=== PATIENT | male | born 1975 | race Caucasian/White ===

== ENCOUNTER → 2020-06-05 12:09 | Outpatient (CLI) | payer OTHER, SELFPAY ==
[2020-06-05 13:22] LABS: Basophils % 0.5 % (0.1-2.0); Eosinophils # 0.2 K/mm3 (0.0-0.4); Hematocrit 44.5 % (42.0-52.0); Hemoglobin 14.1 g/dL (14.1-18.0); Lymphocytes # 2.2 K/mm3 (0.7-4.5); Lymphocytes % 25.6 % (10-50); Mean Corpuscular HGB Conc 31.6 g/dL (31.8-35.4); Mean Corpuscular Hemoglobin 28.4 pg (27.0-31.2); Mean Corpuscular Volume 89.8 fl (80-94); Monocytes # 0.6 K/mm3 (0.1-1.0); Monocytes % 7.1 % (1.7-9.3); Neutrophils # 5.6 K/mm3 (1.8-7.8); Neutrophils % 64.9 % (37.0-80.0); Platelet Count 339 K/mm3 (142-424); Red Blood Count 4.96 M/mm3 (4.60-6.20); Red Cell Distribution Width 12.8 % (11.5-17.5); White Blood Count 8.7 K/mm3 (4.8-10.8)
== END ==
PROVIDERS: PCP Nurse Practitioner; Visit Provider Nurse Practitioner
DX: Z03.818 Encounter for observation for suspected exposure to other biological agents ruled out (principal)
CPT/HCPCS: 36415; 85025; U0003

== ENCOUNTER 2020-07-28 19:22 | Emergency (ER) | payer OTHER, SELFPAY ==
[2020-07-28 20:21] VITALS: BP 139/85; PULSE 78; RESP 19; TEMP 36.7; O2SAT 100; BMI 34.2
--- NOTE | 2020-07-28 20:24 | HMH.EDUTC ---
[facility] [place]ression: Exposure to COVID-19 virus Disposition: Home, Self-Care Condition on Discharge: Good Instructions: Preventing the Spread of Coronavirus Discharge Instructions Additional Instructions: *Monitor Temp, Over the counter Motrin or Tylenol as directed/as needed Tylenol every 4 hours and Motrin every 6 hours (as long as your family doctor has told you that you can take it) for fever or pain. and straight to ER if unable to lower temp less than 101.0 after medication given *Warm salt water gargles may help to soothe the throat *Throat Lozenges *Warm fluids like tea with honey may help to soothe the throat *Sleep elevated *Humidifier/Vaporizer Follow up IMMEDIATELY for new or worsening symptoms or no Noticeable improvement over the next 48-72 hours. 911 for difficulty breathing or swallowing You was tested for today for COVID19 your test result should be back in the next 24-48 hours, you may call to the [facility] later today or tomorrow to see if your test results are back and the result [phone] [facility] hours are 9am-9pm You was given a handout with instructions for Self Quarantine and Self isolation for while you wait on test results and what to do if they are positive If you are positive the Health Dept will be contacting you also Referrals: Phylicia De La Vega MD [Primary Care Provider] - Forms: Work/School Release Time of Disposition: 20:27 Medical Decision Making - Alexander Inquiry Pt receiving controlled substance: No Alexander was queried for this patient: No Vital Signs: 07/28/20 20:21 Temperature 98.0 F Temperature Source Oral Pulse Rate [Radial] 78 Respiratory Rate 19 Blood Pressure [Right Arm] 139/85 Blood Pressure Mean [Right Arm] 103 Blood Pressure Source [Right Arm] Automatic Cuff Blood Pressure Position [Right Arm] Sitting 02 Sat by Pulse Oximetry 100 Oxygen Delivery Method Room Air Orders (Tests/Meds): ORDERS Category Date Time Status Covid-19 Nasal PCR ([facility] [place]) Routine Lab 07/28/20 19:[address] [facility] [place] - General Stated complaint: Covid 19 Test Time Seen by Provider: 07/28/20 20:24 Mode of Arrival: Ambulatory Source of Information: Patient Limitations: No Limitations Description of Symptoms (Recalled from Triage Doc. by RN): COVID EXPOSURE HEENT Symptoms (Recalled from RN notes): No Resp Symptoms (Recalled from RN notes): No Skin Symptoms (Recalled from RN notes): No MS Symptoms (Recalled from RN notes): No Functional Status (Recalled from RN notes): WNL - History of Present Illness Provider Complaint: Patient state that he wants to get tested for COVID State that his daughter tested positive earlier today States that he has been having some nasal congestion and drainage and feeling achy but denies SOA State that he thought it was allergies until she tested positive - Related Data Previous Rx's Medication Instructions Recorded Hydrocod/Acet 5/325 mg [[place] 1 tab PO Q6HP PRN #10 tab 02/13/18 5/325mg tablet] Allergies Allergy/AdvReac Type Severity Reaction Status Date / Time No Known Allergies Allergy Verified 02/13/18 19:38 - Worker's Comp Is this a Worker's Comp case?: No [facility] [place] History - Hepatitis A Screen Drug use history?: No High risk sexual behaviors?: No History of sexually transmitted infection?: No Currently employed?: No Childcare worker?: No Do you have indoor plumbing?: Yes Do you have electricity?: Yes Attestation statement:: This patient has been screened for Hepatitis A risk factors. I have reviewed the patient's past medical history: Yes Medical History: Denies:: Cancer, Chronic Obstructive Pulmonary Disease (COPD), MRSA Laterality Cases: Bilateral: Tonsillectomy - Social History Tobacco Type: smokeless tobacco Alcohol Intake: never Substance Use Type: denies use Occupational Status: other Housing: other Family Hx:: Non-contributory ROS Obtained: Yes All systems reviewed & no additional c
[2020-07-28 20:44] VITALS: BP 139/85; PULSE 78; RESP 19; TEMP 36.7; O2SAT 100
== END 2020-07-28 20:45 | disposition home or self-care (01) ==
PROVIDERS: Emergency Provider Nurse Practitioner; PCP Family Medicine
DX: Z20.828 Contact with and (suspected) exposure to other viral communicable diseases (principal); F17.290 Nicotine dependence, other tobacco product, uncomplicated
CPT/HCPCS: 99201; U0003

== ENCOUNTER → 2020-09-24 16:15 | Outpatient (CLI) | payer OTHER, SELFPAY ==
--- NOTE | 2020-09-24 | ECG_ITS ---
APPROVED REPORT Exam: Resting ECG HR:84 bpm ECG Measurements Heart Rate 84 AXES HI 158 P 58 QRSd 102 QRS 2 QT 348 T -5 QTc 411 Conclusion Normal sinus rhythm Normal ECG Electronically signed by : Kj Dasilva, 09/25/2020 07:08:07
[2020-09-24 16:28] LABS: MANUAL DIFFERENTIAL MANUAL DIFFERENTIAL (MANUAL DIFF)
--- NOTE | 2020-09-24 16:37 | XR_ITS ---
PROCEDURE: XR CHEST 2V CLINICAL HISTORY: ESSENTIAL HYPERTENSION COMPARISON: CT AGCHEST CT angio chest from 02/13/2018 CR CXR1VP XR chest portable from 02/13/2018 FINDINGS: The cardiomediastinal silhouette and pulmonary vascularity are within normal limits. The lungs are clear without infiltrates, suspicious nodules, or pleural effusions. There is an old healed right clavicular fracture. Old right-sided rib fractures also noted. IMPRESSION: No acute findings. Dictated by: Rj Lovett MD 09/24/2020 17:10 Rj Lovett MD in [place] 09/24/2020 17:10
[2020-09-24 17:36] LABS: Basophils % 0.4 % (0.1-2.0); Eosinophils # 0.2 K/mm3 (0.0-0.4); Eosinophils % 1.8 % (0.1-12.0); Hematocrit 47.4 % (42.0-52.0); Hemoglobin 15.3 g/dL (14.1-18.0); Lymphocytes # 2.9 K/mm3 (0.7-4.5); Lymphocytes % 36.3 % (10-50); Mean Corpuscular HGB Conc 32.3 g/dL (31.8-35.4); Mean Corpuscular Hemoglobin 28.9 pg (27.0-31.2); Mean Corpuscular Volume 89.4 fl (80-94); Mean Platelet Volume 7.5 fl (7.4-10.4); Monocytes # 0.3 K/mm3 (0.1-1.0); Monocytes % 3.8 % (1.7-9.3); Neutrophils # 4.6 K/mm3 (1.8-7.8); Neutrophils % 57.6 % (37.0-80.0); Platelet Count 343 K/mm3 (142-424); Red Cell Distribution Width 13.2 % (11.5-17.5)
[2020-09-24 17:50] LABS: Alanine Aminotransferase 21 U/L (12-78); Albumin Level 4.6 g/dl (3.5-5.0); Albumin/Globulin Ratio 1.3 (1.1-1.8); Alkaline Phosphatase 60 U/L (38-126); Anion Gap 12.9 mEq/L (5-15); Aspartate Amino Transferase 32 U/L (17-59); Bilirubin,Total 0.6 mg/dl (0.2-1.3); Blood Urea Nitrogen 12 mg/dl (9-20); Carbon Dioxide 31 mmol/L (22.0-30.0); Chloride 99 mmol/L (98-107); Chol/HDL Ratio 3.6 (1-3.5); Cholesterol 217 mg/dl (140-200); Estimated Glomerular Filt Rate 92 ml/min (>60); GFR (African American) 111 ML/MIN (>60); Globulin 3.5 g/dL (1.3-3.2); Glucose 139 mg/dl (74-100); HDL Cholesterol 60 mg/dl (40-60); Potassium 4.9 mmoL/L (3.5-5.1); Sodium 138 mmol/L (136-145); Total Protein,Serum 8.1 g/dl (6.3-8.2); Triglycerides 172 mg/dl (30-150); Uric Acid 5.8 mg/dl (3.5-8.5); VLDL Cholesterol 34 mg/dL (0-40)
[2020-09-24 18:01] LABS: Direct LDL Cholesterol 104.72 mg/dL (100-129)
[2020-09-24 18:21] LABS: Eosinophils % 1 % (0-3); Lymphocytes % 48 % (10-50); Monocytes % 3 % (2-9); Neutrophils % 48 % (42-76); Platelet Estimate Normal; Thyroid Stimulating Hormone 2.41 uIU/mL (0.465-4.68); Total Cells Counted 100
[2020-09-24 18:22] LABS: RBC Morphology Normal
[2020-09-24 19:33] LABS: Hemoglobin A1C 5.4 % (4.0-6.0)
== END ==
PROVIDERS: Visit Provider Nurse Practitioner
DX: I10 Essential (primary) hypertension (principal)
CPT/HCPCS: 36415; 71046; 80053; 80061; 83036; 84443; 84550; 85007; 85014; 85018; 85048; 85049; 93005

== ENCOUNTER → 2021-04-10 11:56 | Outpatient (CLI) | payer OTHER, SELFPAY ==
[2021-04-10 13:55] LABS: Basophils % 0.5 % (0.1-2.0); Eosinophils # 0.1 K/mm3 (0.0-0.4); Eosinophils % 0.7 % (0.1-12.0); Hemoglobin 14.3 g/dL (14.1-18.0); Lymphocytes # 2.8 K/mm3 (0.7-4.5); Lymphocytes % 32.9 % (10-50); Mean Corpuscular HGB Conc 32.6 g/dL (31.8-35.4); Mean Corpuscular Volume 85.9 fl (80-94); Mean Platelet Volume 7.6 fl (7.4-10.4); Monocytes # 0.4 K/mm3 (0.1-1.0); Monocytes % 5.3 % (1.7-9.3); Neutrophils # 5.1 K/mm3 (1.8-7.8); Neutrophils % 60.6 % (37.0-80.0); Platelet Count 336 K/mm3 (142-424); Red Blood Count 5.12 M/mm3 (4.60-6.20); Red Cell Distribution Width 13.3 % (11.5-17.5); White Blood Count 8.4 K/mm3 (4.8-10.8)
[2021-04-10 14:02] LABS: Chloride 101 mmol/L (98-107); Potassium 3.7 mmoL/L (3.5-5.1); Sodium 139 mmol/L (136-145)
[2021-04-10 14:05] LABS: Alanine Aminotransferase 31 U/L (12-78); Albumin Level 4.5 g/dl (3.5-5.0); Albumin/Globulin Ratio 1.3 (1.1-1.8); Alkaline Phosphatase 61 U/L (38-126); Anion Gap 13.7 mEq/L (5-15); Aspartate Amino Transferase 34 U/L (17-59); Bilirubin,Total 0.7 mg/dl (0.2-1.3); Blood Urea Nitrogen 12 mg/dl (9-20); Calcium 9.2 mg/dl (8.4-10.2); Carbon Dioxide 28 mmol/L (22.0-30.0); Estimated Glomerular Filt Rate 105 ml/min (>60); GFR (African American) 126 ML/MIN (>60); Globulin 3.6 g/dL (1.3-3.2); Glucose 87 mg/dl (74-100); Total Protein,Serum 8.1 g/dl (6.3-8.2)
== END ==
PROVIDERS: PCP Nurse Practitioner; Visit Provider Nurse Practitioner
DX: Z20.822 Contact with and (suspected) exposure to COVID-19 (principal)
CPT/HCPCS: 36415; 80053; 85025; U0003

== ENCOUNTER 2021-04-11 20:04 | Emergency (ER) | payer OTHER, SELFPAY ==
[2021-04-11 20:06] VITALS: BP 116/83; PULSE 87; RESP 16; TEMP 36.7; O2SAT 98; BMI 33.2
--- NOTE | 2021-04-11 20:19 | XR_ITS ---
PROCEDURE INFORMATION: Exam: XR Chest Exam date and time: 04/11/2021 8:19 PM Age: 46 years old Clinical indication: Cough and shortness of breath; Additional info: Ruq TECHNIQUE: Imaging protocol: XR of the chest. Views: 2 views. COMPARISON: CR XR CHEST 2V 09/24/2020 4:41 PM FINDINGS: Lungs: Unremarkable. No consolidation. Pleural spaces: Unremarkable. No pleural effusion. No pneumothorax. Heart/Mediastinum: Unremarkable. No cardiomegaly. Bones/joints: Unremarkable. IMPRESSION: No acute findings.
--- NOTE | 2021-04-11 20:21 | CT_ITS ---
PROCEDURE INFORMATION: Exam: CT Abdomen And Pelvis With Contrast Exam date and time: 04/11/2021 8:21 PM Age: 46 years old Clinical indication: Abdominal pain; Localized; Right; Patient HX: Ruq pain for a week. TECHNIQUE: Imaging protocol: Computed tomography of the abdomen and pelvis with contrast. Radiation optimization: All CT scans at this facility use at least one of these dose optimization techniques: automated exposure control; mA and/or kV adjustment per patient size (includes targeted exams where dose is matched to clinical indication); or iterative reconstruction. Contrast material: ISOVUE; Contrast volume: 75 ml; Contrast route: IV; COMPARISON: CR PEL1V XR pelvis 1-2V 02/13/2018 7:42 PM FINDINGS: Liver: Normal. No mass. A tiny hypodensities seen in the inferior right lobe on image 49 which could represent a small cyst. Gallbladder and bile ducts: Normal. No calcified stones. No ductal dilation. Pancreas: Normal. No ductal dilation. Spleen: Normal. No splenomegaly. Adrenal glands: Normal. No mass. Kidneys and ureters: Small renal hypodensities are too small to further characterize. Stomach and bowel: Unremarkable. No obstruction. No mucosal thickening. Appendix: Appendix is normal. Intraperitoneal space: Unremarkable. No free air. No significant fluid collection. Vasculature: Unremarkable. No abdominal aortic aneurysm. Lymph nodes: Unremarkable. No enlarged lymph nodes. Urinary bladder: Unremarkable as visualized. Reproductive: Unremarkable as visualized. Bones/joints: Unremarkable. No acute fracture. Soft tissues: Unremarkable. IMPRESSION: No acute intra-abdominal pathology. No findings to explain the patient's symptoms. COMMENTS: Consistent with the [employer]'s Incidental Findings Committee white paper (J Am Campbell Radiol 2018): Any incidental renal lesion less than 1 cm or classified as too small to characterize, or any incidental cystic renal lesion characterized as simple-appearing, is likely benign. No follow-up imaging is recommended for these lesions per consensus recommendations based on imaging criteria.
[2021-04-11 20:32] LABS: Basophils % 0.4 % (0.1-2.0); Eosinophils % 0.2 % (0.1-12.0); Hematocrit 43.8 % (42.0-52.0); Hemoglobin 14.7 g/dL (14.1-18.0); Lymphocytes # 1.2 K/mm3 (0.7-4.5); Lymphocytes % 15.6 % (10-50); Mean Corpuscular HGB Conc 33.6 g/dL (31.8-35.4); Mean Corpuscular Hemoglobin 28.5 pg (27.0-31.2); Mean Corpuscular Volume 84.8 fl (80-94); Mean Platelet Volume 7.8 fl (7.4-10.4); Monocytes # 0.2 K/mm3 (0.1-1.0); Monocytes % 2.3 % (1.7-9.3); Neutrophils # 6.1 K/mm3 (1.8-7.8); Neutrophils % 81.5 % (37.0-80.0); Platelet Count 372 K/mm3 (142-424); Red Blood Count 5.16 M/mm3 (4.60-6.20); Red Cell Distribution Width 13.1 % (11.5-17.5); White Blood Count 7.4 K/mm3 (4.8-10.8)
[2021-04-11 20:36] LABS: Chloride 102 mmol/L (98-107); Potassium 4.3 mmoL/L (3.5-5.1); Sodium 138 mmol/L (136-145)
[2021-04-11 20:38] LABS: Amylase 80 U/L (30-110)
[2021-04-11 20:39] LABS: Alanine Aminotransferase 41 U/L (12-78); Albumin Level 4.9 g/dl (3.5-5.0); Albumin/Globulin Ratio 1.2 (1.1-1.8); Alkaline Phosphatase 51 U/L (38-126); Anion Gap 15.3 mEq/L (5-15); Aspartate Amino Transferase 42 U/L (17-59); Bilirubin,Total 0.7 mg/dl (0.2-1.3); Blood Urea Nitrogen 14 mg/dl (9-20); Calcium 9.4 mg/dl (8.4-10.2); Carbon Dioxide 25 mmol/L (22.0-30.0); Creatinine Clearance Estimated 209 mL/min (50-200); Estimated Glomerular Filt Rate 122 ml/min (>60); GFR (African American) 148 ML/MIN (>60); Glucose 180 mg/dl (74-100); Lipase 105 U/L (23-300); Total Protein,Serum 8.9 g/dl (6.3-8.2)
[2021-04-11 20:45] LABS: C-Reactive Protein 3.3 mg/L (0-4)
[2021-04-11 20:59] LABS: Troponin I < 0.01 ng/ml (0.00-0.034)
--- NOTE | 2021-04-11 21:11 | ECG_ITS ---
APPROVED REPORT Exam: Resting ECG HR:82 bpm ECG Measurements Heart Rate 82 AXES MA 160 P 62 QRSd 100 QRS -57 QT 350 T 37 QTc 408 Conclusion Normal sinus rhythm Left anterior fascicular block Abnormal ECG Electronically signed by : Kj Dasilva MD 04/12/2021 16:54:59
[2021-04-11 21:29] LABS: Erythrocyte Sedimentation Rate 23 mm/hr (0-15)
[2021-04-11 21:33] LABS: Procalcitonin 0.046 ng/mL (0.0-2.0)
[2021-04-11 21:46] LABS: Microscopic, Urine URINE MICROSCOPIC (MICROSCOPIC)
[2021-04-11 21:53] LABS: Appearance,Urine CLEAR (Clear); Bilirubin,Urine Negative (Negative); Blood, Urine Negative (Negative); Color,Urine STRAW (Yellow); Glucose,Urine (UA) Negative (Negative); Ketones,Urine Negative (Negative); Leukocyte Esterase,Urine Negative (Negative); Nitrate,Urine Negative (Negative); Protein,Urine Negative (Negative); Specific Gravity, Urine <= 1.005 (1.005-1.030); Urobilinogen,Urine 0.2 EU/dl (0.2)
--- NOTE | 2021-04-11 22:03 | HMH.EDNVD ---
ED Disposition Clinical Impression: Abdominal pain Qualifiers: Abdominal location: right upper quadrant Qualified Code(s): R10.11 - Right upper quadrant pain Disposition: Home, Self-Care Condition on Discharge: Good Instructions: DI for Acute Abdominal Pain Additional Instructions: see pcp for follow up Referrals: Laverne Ward APRN [Primary Care Provider] - - Critical Care Critical Care Time: No Attestation: On 04/11/21, the high probability of a clinically significant, sudden or life threatening deterioration of the following system(s) required my full and direct attention, intervention and personal management. The time I documented below is in addition to time spent performing reported procedures but includes the following listed in this critical care notation. Medical Decision Making - Medical Records Medical records reviewed: Yes: I reviewed the patient's medical records. - Alexander Inquiry Pt receiving controlled substance: No Vital Signs: 04/11/21 20:06 Temperature 98.1 F Temperature Source Oral Pulse Rate [Right] 87 Respiratory Rate 16 Blood Pressure [Right Arm] 116/83 Blood Pressure Mean [Right Arm] 94 02 Sat by Pulse Oximetry 98 - Lab Data Lab results reviewed: Yes: I reviewed the patient's lab results. Lab Results 04/11/21 20:15: WBC 7.4, RBC 5.16, Hgb 14.7, Hct 43.8, MCV 84.8, MCH 28.5, MCHC 33.6, RDW 13.1, Plt Count 372, MPV 7.8, Neut % (Auto) 81.5 H, Lymph % (Auto) 15.6, [place] % (Auto) 2.3, Eos % (Auto) 0.2, Baso % (Auto) 0.4, Neut # (Auto) 6.1, Lymph # (Auto) 1.2, [place] # (Auto) 0.2, Eos # (Auto) 0.0, Baso # (Auto) 0.0, ESR 23 H 04/11/21 20:15: Sodium 138, Potassium 4.3, Chloride 102, Carbon Dioxide 25, Anion Gap 15.3 H, BUN 14, Creatinine 0.70, Estimated Creat Clear 209, Estimated GFR 122, Est GFR ( Amer) 148, Glucose 180 H, Calcium 9.4, Total Bilirubin 0.7, AST 42, ALT 41 D, Alkaline Phosphatase 51, Troponin I < 0.01, C-Reactive Protein 3.3, Total Protein 8.9 H, Albumin 4.9, Globulin 4.0 H, Albumin/Globulin Ratio 1.2, Amylase 80, Lipase 105, Procalcitonin 0.046 Result diagrams: 04/11/21 20:15 04/11/21 20:15 Orders (Tests/Meds): ED MEDICATIONS Discontinued Medications Generic Name Dose Route Start Last Admin Trade Name Freq PRN Reason Stop Dose Admin Iopamidol 75 ml 04/11/21 20:56 04/11/21 20:57 Iopamidol-370 (76%);100ml Bottle IV 04/11/21 20:57 75 ml ONCE ONE Administration Sodium Chloride 10 ml 04/11/21 20:56 04/11/21 20:57 Sodium Chloride 0.9% 10ml Syr (Rad Only) IV 04/11/21 20:57 10 ml ONCE ONE Administration ORDERS Category Date Time Status Troponin I Q3H Lab 04/11/21 23:30 Ordered Troponin I Q3H Lab 04/12/21 02:30 Ordered UA [Urinalysis and Microscopic] Stat Lab 04/11/21 21:30 Received - Radiology Data #1 Image(s): Chest Image Reviewed: Yes I have reviewed radiologist's interpretation Preliminary Findings: Normal/NAD - CT Data CT Scan: Abdomen, Pelvis Time Received: 22:[address] Reviewed: Yes: I have viewed the radiologist's interpretation Preliminary Findings: Normal/NAD - ECG Data Tracing #1 Normal Sinus Rhythm: Yes Ischemic changes: non-specific ST-T wave changes Medical Decision Narrative: stable exam and xrays and labs Nausea/Vomiting/Diarrhea HPI - General Chief complaint: Abdominal Pain Stated complaint: pain upper R side,around to back Time Seen by Provider: 04/11/21 21:15 Mode of Arrival: Ambulatory Source of Information: Patient, Medical Record Limitations: No Limitations Description of Symptoms (Recalled from ER Triage Doc. by RN): pt c/o RUQ that radiates to back that worses after he eats x week - History of Present Illness HPI Narrative: has 2 issues - rt upper abd pain after meals - also has post lt neck pain and lt shoulder - has neg stress test he reports about 6 months ago -no trauma/fever or rash complaint: abdominal pain Onset (ago): day(s) Associated Abdominal
[2021-04-11 22:07] VITALS: BP 142/70; PULSE 78; RESP 17; TEMP 36.8; O2SAT 98
[2021-04-11 22:14] LABS: Squamous Epithelial Cell,Urine Occasional #/hpf (0-5); WBC,Urine Occasional #/hpf (0-3)
== END 2021-04-11 22:35 | disposition home or self-care (01) ==
PROVIDERS: Emergency Provider Emergency Medicine; PCP Nurse Practitioner
DX: R10.11 Right upper quadrant pain (principal)
CPT/HCPCS: 71046; 74177; 80053; 81001; 82150; 83690; 84145; 84484; 85025; 85651; 86140; 93005; 99283; Q9967

== ENCOUNTER → 2021-04-18 07:44 | Outpatient (CLI) | payer OTHER, SELFPAY ==
--- NOTE | 2021-04-18 07:46 | US_ITS ---
PROCEDURE: US ABDOMEN LIMITED CLINICAL INDICATION: RUQ ABDOMINAL PAIN COMPARISON: No exams were available for comparison FINDINGS: PANCREAS: Unremarkable. No obvious mass or abnormal fluid collection. No ductal dilatation LIVER: No focal liver lesions demonstrated. Homogeneous echogenicity. No intrahepatic biliary ductal dilatation evident. There is appropriate direction of blood flow within a non dilated portal vein RIGHT KIDNEY: Unremarkable. Normal size and echogenicity. No hydronephrosis GALLBLADDER: No gallstones, gallbladder wall thickening, pericholecystic fluid, or biliary dilatation. IMPRESSION: Unremarkable limited abdominal ultrasound as detailed above disc Dictated by: Rj Lovett MD 04/18/2021 11:30 Rj Lovett MD in [place] 04/18/2021 11:30
== END ==
PROVIDERS: PCP Nurse Practitioner; Visit Provider Nurse Practitioner
DX: R10.11 Right upper quadrant pain (principal)
CPT/HCPCS: 76705

== ENCOUNTER 2021-04-23 08:43 | Emergency (ER) | payer OTHER, SELFPAY ==
[2021-04-23 08:43] VITALS: BP 149/89; PULSE 87; RESP 13; TEMP 37.1; O2SAT 99; BMI 32.5
--- NOTE | 2021-04-23 08:50 | HMH.EDGENADL ---
ED Disposition Clinical Impression: Elevated blood pressure reading Disposition: Home, Self-Care Condition on Discharge: Good Instructions: Recommendations to Help Prevent High Blood Pressure, Essential Hypertension Additional Instructions: You have been evaluated for elevated blood pressure reading. There does not appear to be a kidney injury or evidence of endorgan dysfunction. Please continue taking all medications as prescribed. Follow-up with your primary care doctor. Return to the emergency department for any new or worsening symptoms, headache, vision changes, chest pain, other concerns. Referrals: Laverne Ward APRN [Primary Care Provider] - Time of Disposition: 10:27 - Critical Care Critical Care Time: No Attestation: On , the high probability of a clinically significant, sudden or life threatening deterioration of the following system(s) required my full and direct attention, intervention and personal management. The time I documented below is in addition to time spent performing reported procedures but includes the following listed in this critical care notation. Medical Decision Making - Medical Records Medical records reviewed: Yes: I reviewed the patient's medical records. - Alexander Inquiry Pt receiving controlled substance: No Vital Signs: 04/23/21 08:43 04/23/21 10:05 Temperature 98.7 F Temperature Source Oral Pulse Rate 84 Pulse Rate [Right Radial] 87 Respiratory Rate 13 15 Blood Pressure 117/77 Blood Pressure [Right Arm] 149/89 H Blood Pressure Mean [Right Arm] 109 Blood Pressure Source [Right Arm] Automatic Cuff Blood Pressure Position [Right Arm] Sitting 02 Sat by Pulse Oximetry 99 99 Oxygen Delivery Method Room Air Room Air - Lab Data Lab Results 04/23/21 09:10: WBC 7.0, RBC 4.87, Hgb 14.0 L, Hct 43.0, MCV 88.3, MCH 28.8, MCHC 32.6, RDW 13.3, Plt Count 327, MPV 7.5, Neut % (Auto) 66.9, Lymph % (Auto) 19.2, [place] % (Auto) 10.7 H, Eos % (Auto) 2.3, Baso % (Auto) 0.8, Neut # (Auto) 4.7, Lymph # (Auto) 1.4, [place] # (Auto) 0.8, Eos # (Auto) 0.2, Baso # (Auto) 0.1 04/23/21 09:10: Sodium 132 L, Potassium 3.9, Chloride 95 L, Carbon Dioxide 30, Anion Gap 10.9, BUN 9, Creatinine 0.80, Estimated Creat Clear 180, Estimated GFR 105, Est GFR ( Amer) 126, Glucose 116 H, Calcium 8.8, Total Bilirubin 0.5, AST 32, ALT 24, Alkaline Phosphatase 57, Troponin I < 0.01, Total Protein 7.6, Albumin 4.2, Globulin 3.4 H, Albumin/Globulin Ratio 1.2 04/23/21 09:10: SARS-CoV-2 (PCR) Not detected, Influenza A Untype (PCR) Not detected, Influenza Type B (PCR) Not detected Result diagrams: 04/23/21 09:10 04/23/21 09:10 Orders (Tests/Meds): ORDERS Category Date Time Status CXR --portable [XR chest portable] Stat Exams 04/23/21 10:15 Taken Troponin I Q3H Lab 04/23/21 12:15 Ordered Troponin I Q3H Lab 04/23/21 15:15 Ordered - ECG Data Tracing #1 Sinus rhythm with ventricular rate of 85 bpm. QRS 98, QTc 397. Left axis deviation. No ST segment elevation. Medical Decision Narrative: In summary this is a 46-year-old male with history of hypertension presenting to the emergency department with sinus congestion elevated blood pressure reading at home. Patient clinically stable on arrival. Vital signs within normal limits with exception of hypertension at 140/86. Patient in no acute distress. Believe that elevated blood pressure could be due to acute viral URI. Concern for COVID-19. Will obtain screening CBC, BMP, troponin, EKG to assess for signs of endorgan dysfunction. EKG shows sinus rhythm with left axis deviation. Patient has had an echocardiogram within the last year, unremarkable. Denying chest pain at this time. Laboratory results are reassuring. No renal insufficiency. No abnormality of glucose or electrolytes. Covid negative. Chest x-ray shows no focal opacity or other abnormality within the thorax. On reassessment patient feeling somewhat better. Blood pressure curtis
--- NOTE | 2021-04-23 08:55 | ECG_ITS ---
APPROVED REPORT Exam: Resting ECG HR:85 bpm ECG Measurements Heart Rate 85 AXES MN 166 P 44 QRSd 98 QRS -39 QT 334 T 23 QTc 397 Conclusion Normal sinus rhythm Left axis deviation Abnormal ECG Electronically signed by : Kj Dasilva MD 04/23/2021 17:34:25
[2021-04-23 09:19] LABS: Coronavirus 19, PCR Not Detected (NotDetected); Influenza A, PCR Not Detected (NotDetected); Influenza B, PCR Not Detected (NotDetected)
[2021-04-23 09:22] LABS: Basophils # 0.1 K/mm3 (0-0.2); Basophils % 0.8 % (0.1-2.0); Eosinophils # 0.2 K/mm3 (0.0-0.4); Eosinophils % 2.3 % (0.1-12.0); Lymphocytes # 1.4 K/mm3 (0.7-4.5); Lymphocytes % 19.2 % (10-50); Mean Corpuscular HGB Conc 32.6 g/dL (31.8-35.4); Mean Corpuscular Hemoglobin 28.8 pg (27.0-31.2); Mean Corpuscular Volume 88.3 fl (80-94); Mean Platelet Volume 7.5 fl (7.4-10.4); Monocytes # 0.8 K/mm3 (0.1-1.0); Monocytes % 10.7 % (1.7-9.3); Neutrophils # 4.7 K/mm3 (1.8-7.8); Neutrophils % 66.9 % (37.0-80.0); Platelet Count 327 K/mm3 (142-424); Red Blood Count 4.87 M/mm3 (4.60-6.20); Red Cell Distribution Width 13.3 % (11.5-17.5)
[2021-04-23 09:23] LABS: Chloride 95 mmol/L (98-107); Potassium 3.9 mmoL/L (3.5-5.1); Sodium 132 mmol/L (136-145)
[2021-04-23 09:25] LABS: Blood Urea Nitrogen 9 mg/dl (9-20); Creatinine Clearance Estimated 180 mL/min (50-200); Estimated Glomerular Filt Rate 105 ml/min (>60); GFR (African American) 126 ML/MIN (>60)
[2021-04-23 09:26] LABS: Alanine Aminotransferase 24 U/L (12-78); Albumin Level 4.2 g/dl (3.5-5.0); Albumin/Globulin Ratio 1.2 (1.1-1.8); Alkaline Phosphatase 57 U/L (38-126); Anion Gap 10.9 mEq/L (5-15); Aspartate Amino Transferase 32 U/L (17-59); Bilirubin,Total 0.5 mg/dl (0.2-1.3); Calcium 8.8 mg/dl (8.4-10.2); Carbon Dioxide 30 mmol/L (22.0-30.0); Globulin 3.4 g/dL (1.3-3.2); Glucose 116 mg/dl (74-100); Total Protein,Serum 7.6 g/dl (6.3-8.2)
[2021-04-23 09:38] LABS: Troponin I < 0.01 ng/ml (0.00-0.034)
[2021-04-23 10:05] VITALS: BP 117/77; PULSE 84; RESP 15; O2SAT 99
--- NOTE | 2021-04-23 10:15 | XR_ITS ---
PROCEDURE: XR CHEST PORTABLE CLINICAL HISTORY: cough COMPARISON: CT AGCHEST CT angio chest from 02/13/2018 CR CXR1VP XR chest portable from 02/13/2018 CR XR CHEST 2V from 09/24/2020 CR XR CHEST 2V from 04/11/2021 FINDINGS: The cardiomediastinal silhouette and pulmonary vascularity are within normal limits. The lungs are clear without infiltrates, suspicious nodules, or pleural effusions. There is old right distal clavicular fracture an old right 4th 5th and 6th rib fractures. IMPRESSION: No acute findings. Dictated by: Rj Lovett MD 04/23/2021 10:46 Rj Lovett MD in [place] 04/23/2021 10:46
[2021-04-23 10:41] VITALS: BP 132/86; PULSE 78; RESP 14; TEMP 36.7; O2SAT 98
== END 2021-04-23 10:43 | disposition home or self-care (01) ==
PROVIDERS: Emergency Provider Emergency Medicine; PCP Nurse Practitioner
DX: Z20.822 Contact with and (suspected) exposure to COVID-19 (principal); R03.0 Elevated blood-pressure reading, without diagnosis of hypertension; R05 Cough
CPT/HCPCS: 71045; 80053; 84484; 85025; 93005; 99283; U0003

== ENCOUNTER → 2021-05-03 08:41 | Outpatient (CLI) | payer OTHER, SELFPAY ==
--- NOTE | 2021-05-03 08:44 | NM_ITS ---
PROCEDURE: NM HEPATOBILIARY W PHARM CLINICAL INDICATION: RUQ ABD PAIN COMPARISON: No exams were available for comparison TECHNIQUE: 4.92 mCi technetium 9 9 M Choletec was injected.. CCK was injected FINDINGS: Homogeneous activity is present within the hepatic parenchyma. Activity is present in the gallbladder by 15 minutes. Activity is present in the small bowel by 20 minutes. The gallbladder ejection fraction is calculated to be 55 percent. CCK-The patient did not report pain or other symptoms during CCK infusion. IMPRESSION: Normal study with normal ejection fraction Dictated by: Dr. Nehemiah Marcus MD 05/03/2021 12:01 Dr. Nehemiah Marcus MD in [place] 05/03/2021 12:01
== END ==
PROVIDERS: PCP Nurse Practitioner; Visit Provider Nurse Practitioner
DX: R10.11 Right upper quadrant pain (principal)
CPT/HCPCS: 78227; A9537; J2805

== ENCOUNTER 2021-06-23 11:56 | Emergency (ER) | payer OTHER, SELFPAY ==
[2021-06-23 12:23] VITALS: BP 134/88; PULSE 98; RESP 18; TEMP 36.8; O2SAT 99; BMI 32.0
--- NOTE | 2021-06-23 12:49 | HMH.EDUTC ---
[facility] [place] Clinical Impression: Sinusitis Qualifiers: Sinusitis location: unspecified location Chronicity: acute Recurrence: non-recurrent Qualified Code(s): J01.90 - Acute sinusitis, unspecified Disposition: Home, Self-Care Condition on Discharge: Good Instructions: DI for Sinusitis Additional Instructions: Drink plenty of fluids. Take tylenol or ibuprofen for pain or fever. Take the medications as directed. Follow up with your regular doctor. GO TO THE ER FOR ANY WORSENING SYMPTOMS Quarantine until you know the results of your covid-19 test. If it is positive, the health department should call you and give you further instructions about your length of Quarantine and other things. Notify your school or workplace of your results and follow their instructions regarding return to work/school. Prescriptions: Brompheniramine/Pseudoephed/Dm [Bromfed Dm Cough Syrup] 5 ml PO Q6HP PRN #240 ml PRN Reason: Cough Transmission Status: Received by [id number] predniSONE [Prednisone 20mg Tab] 20 mg PO BID 4 Days #8 tab Transmission Status: Received by [id number] Azithromycin [Z-Kevin 250mg Tab*] 250 mg PO UD DOSE PK #6 tab Transmission Status: Received by [id number] Referrals: Laverne Ward APRN [Primary Care Provider] - Time of Disposition: 12:55 Medical Decision Making - Medical Records Medical records reviewed: No: I reviewed the patient's medical records. - Alexander Inquiry Pt receiving controlled substance: No Vital Signs: 06/23/21 12:23 06/23/21 13:21 Temperature 98.3 F 98.3 F Temperature Source Oral Pulse Rate 98 H Pulse Rate [Right Brachial] 98 H Respiratory Rate 18 18 Blood Pressure 134/88 Blood Pressure [Right Arm] 134/88 Blood Pressure Mean [Right Arm] 103 Blood Pressure Source [Right Arm] Automatic Cuff Blood Pressure Position [Right Arm] Sitting 02 Sat by Pulse Oximetry 99 Oxygen Delivery Method Room Air - Lab Data Lab results reviewed: Yes: I reviewed the patient's lab results. Lab Results 06/23/21 12:54: Strep Scn Rapid Clinic Negative Orders (Tests/Meds): ORDERS Category Date Time Status Strep Screen Confirmation Routine Micro 06/23/21 12:54 Received [facility] [place]PI - General Stated complaint: congestion Time Seen by Provider: 06/23/21 12:49 Mode of Arrival: Ambulatory Source of Information: Patient Description of Symptoms (Recalled from Triage Doc. by RN): congestion HEENT Symptoms (Recalled from RN notes): Yes Resp Symptoms (Recalled from RN notes): Yes Skin Symptoms (Recalled from RN notes): No MS Symptoms (Recalled from RN notes): No Functional Status (Recalled from RN notes): yes - History of Present Illness Provider Complaint: He states that for the past 3 days he has had sinus congestion, runny nose, and a cough. He denies any fever or chills. - Related Data Previous Rx's Medication Instructions Recorded Azithromycin [Z-Kevin 250mg Tab*] 250 mg PO UD DOSE PK #6 tab 06/23/21 Brompheniramine/Pseudoephed/Dm 5 ml PO Q6HP PRN #240 ml 06/23/21 [Bromfed Dm Cough Syrup] predniSONE [Prednisone 20mg 20 mg PO BID 4 Days #8 tab 06/23/21 Tab] Allergies Allergy/AdvReac Type Severity Reaction Status Date / Time No Known Allergies Allergy Verified 02/13/18 19:38 - Worker's Comp Is this a Worker's Comp case?: No Is this an [facility] Worker's Comp?: No Is this a [place] Worker's Comp?: No [facility] History - Hepatitis A Screen Drug use history?: No High risk sexual behaviors?: No History of sexually transmitted infection?: No Currently employed?: No Childcare worker?: No Do you have indoor plumbing?: Yes Do you have electricity?: Yes Attestation statement:: This patient has been screened for Hepatitis A risk factors. I have reviewed the patient's past medical history: Yes Medical History: Denies:: Cancer, Chronic Obstructive Pulmonary Disease (COPD), MRSA Laterality Cases: Bilateral: Tonsillec
[2021-06-23 12:55] LABS: UTC Strep Screen (Rapid) Negative (Negative)
[2021-06-23 13:21] VITALS: BP 134/88; PULSE 98; RESP 18; TEMP 36.8
== END 2021-06-23 13:21 | disposition home or self-care (01) ==
PROVIDERS: Emergency Provider Nurse Practitioner Family; PCP Nurse Practitioner
DX: J01.90 Acute sinusitis, unspecified (principal); Z20.822 Contact with and (suspected) exposure to COVID-19
CPT/HCPCS: 87880; 99202; C9803; G0463; U0003; U0005

== ENCOUNTER 2021-08-23 18:09 | Emergency (ER) | payer OTHER, SELFPAY ==
[2021-08-23 18:20] VITALS: BP 124/82; PULSE 89; RESP 18; TEMP 37.1; O2SAT 97; BMI 32.5
--- NOTE | 2021-08-23 19:40 | HMH.EDUTC ---
[facility] [place] Disposition Clinical Impression: Sinusitis Qualifiers: Sinusitis location: unspecified location Chronicity: acute Recurrence: non-recurrent Qualified Code(s): J01.90 - Acute sinusitis, unspecified Otitis media Qualifiers: Otitis media type: suppurative Chronicity: acute Laterality: bilateral Recurrence: non-recurrent Spontaneous tympanic membrane rupture: without spontaneous rupture Qualified Code(s): H66.003 - Acute suppurative otitis media without spontaneous rupture of ear drum, bilateral Disposition: Home, Self-Care Condition on Discharge: Good Instructions: DI for Sinusitis, Middle Ear Infection Additional Instructions: Drink plenty of fluids. Take tylenol or ibuprofen for pain or fever. Take the medications as directed. Follow up with your regular doctor. GO TO THE ER FOR ANY WORSENING SYMPTOMS Prescriptions: Amoxicillin/Potassium Clav [Augmentin 875-125 Tablet] 1 tab PO Q12H 10 Days #20 tab Transmission Status: Pending to [id number] methylPREDNISolone [Medrol] 4 mg PO DIRECTED 6 Days #21 packet Transmission Status: Pending to [id number] guaiFENesin [Mucinex 600mg tablet] 1 - 2 tab PO BIDP PRN #30 tab PRN Reason: Congestion Transmission Status: Pending to [id number] Referrals: Laverne Ward APRN [Primary Care Provider] - Time of Disposition: 19:46 Medical Decision Making - Medical Records Medical records reviewed: No: I reviewed the patient's medical records. - Alexander Inquiry Pt receiving controlled substance: No Vital Signs: 08/23/21 18:20 Temperature 98.7 F Temperature Source Oral Pulse Rate [Left] 89 Respiratory Rate 18 Blood Pressure [Right Arm] 124/82 Blood Pressure Mean [Right Arm] 96 02 Sat by Pulse Oximetry 97 Orders (Tests/Meds): ED MEDICATIONS Discontinued Medications Generic Name Dose Route Start Last Admin Trade Name Freq PRN Reason Stop Dose Admin Ceftriaxone Sodium 1 gm 08/23/21 19:23 08/23/21 19:40 Ceftriaxone 1gm Vial IM 08/23/21 19:24 1 gm ONCE ONE Administration Lidocaine HCl 0 ml 08/23/21 19:23 08/23/21 19:39 Lidocaine 1% 5ml Pf Vial IM 08/23/21 19:24 2 ml ONCE ONE Administration Methylprednisolone Sodium Succinate 125 mg 08/23/21 19:23 08/23/21 19:39 Methylprednisolone Sod Succ 125mg Vial IM 08/23/21 19:24 125 mg ONCE ONE Administration [facility] [place] HPI - General Stated complaint: head congestion, neck pain Time Seen by Provider: 08/23/21 18:50 Mode of Arrival: Ambulatory Source of Information: Patient Limitations: No Limitations Description of Symptoms (Recalled from Triage Doc. by RN): pt c/ sinus and neck pain. as well has nasal drainage/congestion and pain and tingling in his L hand. HEENT Symptoms (Recalled from RN notes): Yes (nasal drainage/congestion) Resp Symptoms (Recalled from RN notes): No Skin Symptoms (Recalled from RN notes): No MS Symptoms (Recalled from RN notes): Yes (neck pain and tingling in pts L hand) Functional Status (Recalled from RN notes): wnl - History of Present Illness Provider Complaint: He states that he has had sinus congestion for the past 1 month. He works out of town so he has not had time to go for medical treatment. He denies any fever or chills. He has a nonproductive cough also. - Related Data Previous Rx's Medication Instructions Recorded Azithromycin [Z-Kevin 250mg Tab*] 250 mg PO UD DOSE PK #6 tab 06/23/21 Brompheniramine/Pseudoephed/Dm 5 ml PO Q6HP PRN #240 ml 06/23/21 [Bromfed Dm Cough Syrup] predniSONE [Prednisone 20mg 20 mg PO BID 4 Days #8 tab 06/23/21 Tab] Amoxicillin/Potassium Clav 1 tab PO Q12H 10 Days #20 tab 08/23/21 [Augmentin 875-125 Tablet] guaiFENesin [Mucinex 600mg tablet] 1 - 2 tab PO BIDP PRN #30 tab 08/23/21 methylPREDNISolone [Medrol] 4 mg PO DIRECTED 6 Days #21 08/23/21 packet Allergies Allergy/AdvReac Type Severity Reaction Status Date / Time No Known Allergies Allergy Verified
[2021-08-23 19:50] VITALS: BP 124/82; PULSE 89; RESP 18; TEMP 37.1
== END 2021-08-23 20:19 | disposition home or self-care (01) ==
PROVIDERS: Emergency Provider Nurse Practitioner Family; PCP Nurse Practitioner
DX: J01.90 Acute sinusitis, unspecified (principal); H66.003 Acute suppurative otitis media without spontaneous rupture of ear drum, bilateral
CPT/HCPCS: 96372; 99202; G0463

== ENCOUNTER 2021-08-27 19:38 | Emergency (ER) | payer OTHER, SELFPAY ==
[2021-08-27 21:02] VITALS: BP 135/93; PULSE 67; RESP 18; TEMP 36.9; O2SAT 98; BMI 31.1
--- NOTE | 2021-08-27 21:18 | HMH.EDUTC ---
[facility] [place] Disposition Clinical Impression: Paresthesia Fatigue Qualifiers: Fatigue type: unspecified Qualified Code(s): R53.83 - Other fatigue Disposition: Home, Self-Care Condition on Discharge: Good Instructions: DI for Fatigue Additional Instructions: Follow up with a primary care physician. I recommend you start taking a daily multivitamin, then if your vitamin b12 level comes back low you will need this to be supplemented also. Go to the er for any worsening symptoms or concerns Referrals: Laverne Ward APRN [Primary Care Provider] - Time of Disposition: 22:06 Medical Decision Making - Medical Records Medical records reviewed: No: I reviewed the patient's medical records. - Alexander Inquiry Pt receiving controlled substance: No Vital Signs: 08/27/21 21:02 08/27/21 22:07 Temperature 98.4 F 98.4 F Temperature Source Oral Pulse Rate 67 Pulse Rate [Left] 67 Respiratory Rate 18 18 Blood Pressure 135/93 H Blood Pressure [Right Arm] 135/93 H Blood Pressure Mean [Right Arm] 107 02 Sat by Pulse Oximetry 98 - Lab Data Lab Results 08/27/21 21:44: WBC 14.0 H, RBC 5.20, Hgb 14.8, Hct 47.0, MCV 90.3, MCH 28.4, MCHC 31.4 L, RDW 13.1, Plt Count 385, MPV 7.8, Neut % (Auto) 63.6, Lymph % (Auto) 28.3, [place] % (Auto) 6.9, Eos % (Auto) 0.3, Baso % (Auto) 0.9, Neut # (Auto) 8.9 H, Lymph # (Auto) 4.0, [place] # (Auto) 1.0, Eos # (Auto) 0.1, Baso # (Auto) 0.1, ESR 6 08/27/21 21:44: Sodium 137, Potassium 3.9, Chloride 100, Carbon Dioxide 29, Anion Gap 11.9, BUN 18, Creatinine 0.80, Estimated Creat Clear 172, Estimated GFR 105, Est GFR ( Amer) 126, Glucose 97, Calcium 9.7, Total Bilirubin 0.4, AST 32, ALT 27, Alkaline Phosphatase 54, C-Reactive Protein 1.6, Total Protein 7.5, Albumin 4.3, Globulin 3.2, Albumin/Globulin Ratio 1.3, Vitamin B12 424, Folate 6.47 Result diagrams: 08/27/21 21:44 08/27/21 21:44 [facility] [place] HPI - General Stated complaint: dizzy numb left hand Time Seen by Provider: 08/27/21 21:18 Mode of Arrival: Ambulatory Source of Information: Patient Limitations: No Limitations Description of Symptoms (Recalled from Triage Doc. by RN): pt c/o vertigo. he states he was here 08/23 for an ear infection. pt also states he has pins and needles in his L arm/hand. this comes and goes. HEENT Symptoms (Recalled from RN notes): Yes Resp Symptoms (Recalled from RN notes): No Skin Symptoms (Recalled from RN notes): No MS Symptoms (Recalled from RN notes): Yes Functional Status (Recalled from RN notes): wnl - History of Present Illness Provider Complaint: He is back to follow up. He reports that his sinus infections symptoms are getting much better. But, he continues to have the intermittent left hand tingling. He is worried that he has a low vitamin b12 level because other people in his family have had similar symptoms and their B12 level turned out to be low. He doesn't have a personal history of this. He is also very fatigued and gets exhausted when he is at work significantly more than he used to. - Related Data Previous Rx's Medication Instructions Recorded Azithromycin [Z-Kevin 250mg Tab*] 250 mg PO UD DOSE PK #6 tab 06/23/21 Brompheniramine/Pseudoephed/Dm 5 ml PO Q6HP PRN #240 ml 06/23/21 [Bromfed Dm Cough Syrup] predniSONE [Prednisone 20mg 20 mg PO BID 4 Days #8 tab 06/23/21 Tab] Amoxicillin/Potassium Clav 1 tab PO Q12H 10 Days #20 tab 08/23/21 [Augmentin 875-125 Tablet] guaiFENesin [Mucinex 600mg tablet] 1 - 2 tab PO BIDP PRN #30 tab 08/23/21 methylPREDNISolone [Medrol] 4 mg PO DIRECTED 6 Days #21 08/23/21 packet Allergies Allergy/AdvReac Type Severity Reaction Status Date / Time No Known Allergies Allergy Verified 02/13/18 19:38 - Worker's Comp Is this a Worker's Comp case?: No [facility] History - Hepatitis A Screen Drug use history?: No High risk sexual behaviors?: No History of sexually transmitted infection?: No Currently employed?: No Childcare worker?:
[2021-08-27 21:58] LABS: Alanine Aminotransferase 27 U/L (12-78); Albumin Level 4.3 g/dl (3.5-5.0); Albumin/Globulin Ratio 1.3 (1.1-1.8); Alkaline Phosphatase 54 U/L (38-126); Anion Gap 11.9 mEq/L (5-15); Aspartate Amino Transferase 32 U/L (17-59); Bilirubin,Total 0.4 mg/dl (0.2-1.3); Blood Urea Nitrogen 18 mg/dl (9-20); Calcium 9.7 mg/dl (8.4-10.2); Carbon Dioxide 29 mmol/L (22.0-30.0); Chloride 100 mmol/L (98-107); Creatinine Clearance Estimated 172 mL/min (50-200); Estimated Glomerular Filt Rate 105 ml/min (>60); GFR (African American) 126 ML/MIN (>60); Globulin 3.2 g/dL (1.3-3.2); Glucose 97 mg/dl (74-100); Potassium 3.9 mmoL/L (3.5-5.1); Sodium 137 mmol/L (136-145); Total Protein,Serum 7.5 g/dl (6.3-8.2)
[2021-08-27 22:03] LABS: Basophils # 0.1 K/mm3 (0-0.2); Basophils % 0.9 % (0.1-2.0); C-Reactive Protein 1.6 mg/L (0-4); Eosinophils # 0.1 K/mm3 (0.0-0.4); Eosinophils % 0.3 % (0.1-12.0); Hemoglobin 14.8 g/dL (14.1-18.0); Lymphocytes % 28.3 % (10-50); Mean Corpuscular HGB Conc 31.4 g/dL (31.8-35.4); Mean Corpuscular Hemoglobin 28.4 pg (27.0-31.2); Mean Corpuscular Volume 90.3 fl (80-94); Mean Platelet Volume 7.8 fl (7.4-10.4); Monocytes % 6.9 % (1.7-9.3); Neutrophils # 8.9 K/mm3 (1.8-7.8); Neutrophils % 63.6 % (37.0-80.0); Platelet Count 385 K/mm3 (142-424); Red Cell Distribution Width 13.1 % (11.5-17.5)
[2021-08-27 22:07] VITALS: BP 135/93; PULSE 67; RESP 18; TEMP 36.9
[2021-08-27 22:28] LABS: Erythrocyte Sedimentation Rate 6 mm/hr (0-15)
[2021-08-27 23:06] LABS: Vitamin B12 424 pg/mL (239-931)
[2021-08-27 23:11] LABS: Folate 6.47 ng/mL
== END 2021-08-27 22:11 | disposition home or self-care (01) ==
PROVIDERS: Emergency Provider Nurse Practitioner Family; PCP Nurse Practitioner
DX: R20.2 Paresthesia of skin (principal); R53.83 Other fatigue; R42 Dizziness and giddiness
CPT/HCPCS: 80053; 82607; 82746; 85025; 85651; 86140; 99202; G0463

== ENCOUNTER 2021-10-12 20:52 | Emergency (ER) | payer OTHER, SELFPAY ==
[2021-10-12 21:00] VITALS: BP 130/83; PULSE 77; RESP 18; TEMP 36.4; O2SAT 99; BMI 31.1
[2021-10-12 21:10] VITALS: BP 130/83; PULSE 77; RESP 18; TEMP 36.4
--- NOTE | 2021-10-12 21:12 | HMH.EDUTC ---
[facility] [place] Disposition Clinical Impression: Viral syndrome, Viral respiratory infection Disposition: Home, Self-Care Condition on Discharge: Good Instructions: Preventing the Spread of Coronavirus Discharge Instructions, DI for COVID-19 (Suspected or Confirmed ), DI for Viral Upper Respiratory Infection -- Adult Additional Instructions: Drink plenty of fluids. Take tylenol or ibuprofen for pain or fever. Take the medications as directed. Follow up with your regular doctor. GO TO THE ER FOR ANY WORSENING SYMPTOMS Quarantine until you know the results of your covid-19 test. Notify your school or workplace of your results and follow their instructions regarding return to work/school. Prescriptions: Guaifenesin/Dextromethorphan [Guaifenesin-Dm 100-10 mg/5 ml] 5 ml PO Q6HP PRN #240 ml PRN Reason: Cough Transmission Status: [id number] Benzonatate [Benzonatate 100mg cap] 100 mg PO TIDP PRN #30 cap PRN Reason: Cough Transmission Status: Pending to [id number] Referrals: Marino Willis [Primary Care Provider] - Time of Disposition: 21:27 Medical Decision Making - Medical Records Medical records reviewed: No: I reviewed the patient's medical records. - Alexander Inquiry Pt receiving controlled substance: No Vital Signs: 10/12/21 21:00 10/12/21 21:10 Temperature 97.6 F 97.6 F Temperature Source Oral Pulse Rate 77 Pulse Rate [Left] 77 Respiratory Rate 18 18 Blood Pressure 130/83 Blood Pressure [Right Arm] 130/83 Blood Pressure Mean [Right Arm] 98 02 Sat by Pulse Oximetry 99 - Lab Data Lab results reviewed: Yes: I reviewed the patient's lab results. Lab Results 10/12/21 21:09: Influenza Type A Ag Negative, Influenza Type B Ag Negative Orders (Tests/Meds): ORDERS Category Date Time Status Covid-19 Nasal PCR ([facility]) Routine Lab 10/12/21 21:02 Received Rapid Strep Scrn Group A [Strep Scrn Group A (Rapid)] Lab 10/12/21 21:02 Received Stat [facility] [place] HPI - General Stated complaint: sinus congestion Time Seen by Provider: 10/12/21 21:12 Mode of Arrival: Ambulatory Source of Information: Patient Limitations: No Limitations Description of Symptoms (Recalled from Triage Doc. by RN): pt c/o head and chest congestion x1 wk. HEENT Symptoms (Recalled from RN notes): Yes Resp Symptoms (Recalled from RN notes): No Skin Symptoms (Recalled from RN notes): No MS Symptoms (Recalled from RN notes): No Functional Status (Recalled from RN notes): wnl - History of Present Illness Provider Complaint: He states that he has had sinus and chest congestion for the past approx 1 week. He denies any fever/chills/body aches/shortness of breath. He denies any known exposure to covid-19. - Related Data Previous Rx's Medication Instructions Recorded Azithromycin [Z-Kevin 250mg Tab*] 250 mg PO UD DOSE PK #6 tab 06/23/21 Brompheniramine/Pseudoephed/Dm 5 ml PO Q6HP PRN #240 ml 06/23/21 [Bromfed Dm Cough Syrup] predniSONE [Prednisone 20mg 20 mg PO BID 4 Days #8 tab 06/23/21 Tab] Amoxicillin/Potassium Clav 1 tab PO Q12H 10 Days #20 tab 08/23/21 [Augmentin 875-125 Tablet] guaiFENesin [Mucinex 600mg tablet] 1 - 2 tab PO BIDP PRN #30 tab 08/23/21 methylPREDNISolone [Medrol] 4 mg PO DIRECTED 6 Days #21 08/23/21 packet Benzonatate [Benzonatate 100mg 100 mg PO TIDP PRN #30 cap 10/12/21 cap] Guaifenesin/Dextromethorphan 5 ml PO Q6HP PRN #240 ml 10/12/21 [Guaifenesin-Dm 100-10 mg/5 ml] Allergies Allergy/AdvReac Type Severity Reaction Status Date / Time No Known Allergies Allergy Verified 02/13/18 19:38 - Worker's Comp Is this a Worker's Comp case?: No [facility] History - Hepatitis A Screen Drug use history?: No High risk sexual behaviors?: No History of sexually transmitted infection?: No Currently employed?: No Childcare worker?: No Do you have indoor plumbing?: Yes Do you have electricity?: Yes Attestation statement:: This patient
[2021-10-12 21:15] LABS: UTC Influenza A Antigen Negative (Negative)
[2021-10-12 21:16] LABS: UTC Influenza B Antigen Negative (Negative)
[2021-10-12 21:26] LABS: Strep Scrn Group A (Rapid) Negative (Negative)
== END 2021-10-12 21:32 | disposition home or self-care (01) ==
PROVIDERS: Emergency Provider Nurse Practitioner Family; PCP Pediatrics
DX: J06.9 Acute upper respiratory infection, unspecified (principal); B34.9 Viral infection, unspecified; Z20.822 Contact with and (suspected) exposure to COVID-19
CPT/HCPCS: 87430; 87804; 99203; C9803; G0463; U0003; U0005